=== PATIENT | female | born 1955 | race Caucasian/White ===

== ENCOUNTER 2016-10-24 14:08 | Outpatient (CLI) | payer OTHER ==
--- NOTE | 2016-10-24 17:48 | DIAGNOSTIC IMAGING REPORT ---
PROCEDURE: MG BILATERAL SCREENING W/CAD INDICATION: SCREENING TECHNIQUE: Bilateral CC and MLO digital views. COMPARISON: Comparison made to prior studies from [facility] on 07/28/2014 09/15/2008, and 07/06/2007. FINDINGS: Computer-aided detection applied. Moderately dense with a few dystrophic calcifications. No significant change. IMPRESSION: 1. Negative mammogram. RESULT CODE: 1- Negative. A. A negative report should not delay biopsy if a dominant or clinically suspicious mass is present. 10-15% of cancers are not identified by x-ray. B. A negative report may reinforce clinical impression. C. Adenosis and dense breasts may obscure an underlying neoplasm. D. False positive reports average 6-10%. E.. A yearly screening mammogram is recommended. A reminder letter will be scheduled.
== END 2016-10-24 23:00 ==
LOC: MAM SRH 14:08
DX: Z12.31 Encounter for screening mammogram for malignant neoplasm of breast (principal)

== ENCOUNTER 2016-12-11 12:30 | Outpatient (CLI) | payer OTHER ==
--- NOTE | 2016-12-11 13:23 | DIAGNOSTIC IMAGING REPORT ---
PROCEDURE: XR WRIST MIN 3 VIEWS - RIGHT INDICATION: RIGHT WRIST INJ TECHNIQUE: Four views of the right wrist. COMPARISON: None. FINDINGS: Normal mineralization. No fractures. Normal osseous alignment. No suspicious soft-tissue calcification or radiodense foreign bodies. IMPRESSION: 1. Intact right wrist.
== END 2016-12-11 23:00 ==
LOC: XR SRH 12:30
DX: S69.91XA Unspecified injury of right wrist, hand and finger(s), initial encounter (principal)